=== PATIENT | female | born 1950 | race Caucasian/White ===

== ENCOUNTER 2019-03-05 09:07 | Inpatient (IN) | payer MEDICARE, BC ==
[~2019-03-05] VITALS: Ht 162.6 cm; Wt 64.2 kg
[~2019-03-05 09:07] MED LIST: NO HOME MEDS
[2019-03-05] MEDS ORDERED: diphenhydrAMINE 50 mg/ml inj IV ONE (09:45)
[2019-03-05] MEDS ORDERED: morphine 4 MG/ML inj SYRINge IV ONE (09:45)
[2019-03-05] MEDS ORDERED: normal saline 1000ML IV soln IVB ONE ×2 (09:45→10:50)
[2019-03-05] MEDS ORDERED: proCHLORperazine 10 MG/2 ml inj IV ONE ×2 (09:45→21:30)
[2019-03-05 09:46] LABS: BASOPHILS % (AUTO) 0.2 % (0-1); EOSINOPHILS % (AUTO) 0 % (0-6); HEMATOCRIT 49.4 % (35.0-45.0); HEMOGLOBIN 16.8 g/dl (12.0-16.0); LYMPHOCYTES # (AUTO) 0.9 X10'3 (1.1-4.8); LYMPHOCYTES % (AUTO) 7.4 % (21-51); MEAN CORPUSCULAR HEMOGLOBIN 33.3 PG (27.0-31.0); MEAN CORPUSCULAR HGB CONC 34.1 g/dL (33.0-36.5); MEAN CORPUSCULAR VOLUME 97.7 FL (78-98); MEAN PLATELET VOLUME 8.5 FL (7.4-10.4); MONOCYTES # (AUTO) 0.4 X10'3 (0-0.9); MONOCYTES % (AUTO) 3.3 % (2-12); NEUTROPHILS # (AUTO) 10.2 X10'3 (1.8-7.7); NEUTROPHILS % (AUTO) 89.1 % (42-75); PLATELET COUNT 272 X10'3 (140-440); RED BLOOD COUNT 5.06 X10'6 (4.20-5.60); RED CELL DISTRIBUTION WIDTH 13.1 % (11.5-14.5); WHITE BLOOD COUNT 11.5 X10'3 (4.5-11.0)
[2019-03-05 10:00] LABS: ALANINE AMINOTRANSFERASE 26 U/L (12-78); ALBUMIN 4.2 G/DL (3.4-5.0); ALKALINE PHOSPHATASE 98 IU/L (46-116); AMYLASE 42 U/L (25-115); ANION GAP 17 (8-16); ASPARTATE AMINO TRANSFERASE 19 U/L (10-37); BILIRUBIN,TOTAL 0.6 MG/DL (0.1-1.0); BLOOD UREA NITROGEN 19 MG/DL (7-18); CALCIUM 8.9 MG/DL (8.5-10.1); CHLORIDE 102 MMOL/L (99-107); CREATININE 0.95 MG/DL (0.40-0.90); GLUCOSE 127 MG/DL (70-104); LIPASE 168 U/L (73-393); POTASSIUM 3.6 MMOL/L (3.5-5.1); SODIUM 139 MMOL/L (135-145); TOTAL CARBON DIOXIDE 20.2 MMOL/L (24-32); TOTAL PROTEIN 8.5 G/DL (6.4-8.2); eGFR 58 ML/MIN
--- NOTE | 2019-03-05 10:49 | NUR ---
TO CT SCAN
[2019-03-05 11:20] LABS: CLARITY,URINE SLIGHTLY CLOUDY (Clear); COLOR,URINE YELLOW (Yellow); GLUCOSE, URINE NEGATIVE (Neg); KETONES,URINE 15 mg/dl (Neg); LEUKOCYTE ESTERASE ,URINE NEGATIVE (Neg); NITRITES, URINE POSITIVE (Neg); OCCULT BLOOD,URINE LARGE (Neg); PROTEIN,URINE NEGATIVE (Neg); URINE HCG NEGATIVE (NEG); UROBILINOGEN,URINE 0.2 E.U/dL (0.2-1.0)
[2019-03-05 11:25] LABS: UA COLLECTION TYPE STRAIGHT CATH
--- NOTE | 2019-03-05 11:48 | NUR ---
LYNN ROY INFORMED PATIETN WOKE UP VOMITING, ORDER FOR ZOFRAN
--- NOTE | 2019-03-05 11:49 | NUR ---
PA AWARE OF BP
[2019-03-05] MEDS ORDERED: ondansetron/PF 4mg/2ml inj IV ONE (11:50)
[2019-03-05 11:53] LABS: SQUAMOUS EPITHELIAL CELL,UR FEW /LPF (FEW)
[2019-03-05 11:54] LABS: BACTERIA,URINE 4+ /HPF (Neg)
[2019-03-05 11:58] LABS: WBC,URINE 0-4 /HPF (0-4)
[2019-03-05] MEDS ORDERED: CefTRIAXone/D5W-Rocephin 1gm 50 ML IV ONE (12:05)
--- NOTE | 2019-03-05 13:00 | NUR ---
LYNN ROY AWARE OF REPEAT LACTATE OF 2.5
[2019-03-05] MEDS ORDERED: morphine 2 MG/ML inj. syringe IV PRN ×2 (14:35)
[2019-03-05] MEDS ORDERED: magnesium hydroxide 30ml (MOM) UD suspension PO PRN (14:35)
[2019-03-05] MEDS ORDERED: ondansetron/PF 4mg/2ml inj IV PRN (14:35)
[2019-03-05] MEDS ORDERED: mag hydrox/Alum hydrox/simeth 30ml oral suspension PO PRN (14:35)
--- NOTE | 2019-03-05 15:51 | NUR ---
dr peña at bedside patient to be admited and to or for stone extraction in the am
[2019-03-05] MEDS: normal saline 1000ml 1,000 ML IV SCH (18:43)
--- NOTE | 2019-03-05 19:56 | NUR ---
Attempted to call report to Pat RN in Surgical Unit, nurse currently receiving report from OR. Will call back
[2019-03-05 20:50] VITALS: BP 128/76
[2019-03-05 22:55] VITALS: BP 113/79
[2019-03-05] MEDS: acetaminophen 325mg tablet PO PRN (22:55)
[2019-03-06] VITALS (18 sets, daily range): BP systolic 94–129; BP diastolic 59–98
[2019-03-06] MEDS: normal saline 1000ml 1,000 ML IV SCH ×3 (00:34→10:07)
--- NOTE | 2019-03-06 00:40 | NUR ---
Dr. Livingston notified of Blood cultures from IV start aerobic Gm (-) rods, with Rocephin no change in orders. Addendum: 03/06/19 at 0046 by Sylvie Travis RN Amended: Links added.
[2019-03-06 04:56] LABS: BASOPHILS % (AUTO) 0.2 % (0-1); EOSINOPHILS % (AUTO) 0 % (0-6); HEMATOCRIT 39.6 % (35.0-45.0); HEMOGLOBIN 13.3 g/dl (12.0-16.0); LYMPHOCYTES # (AUTO) 0.3 X10'3 (1.1-4.8); LYMPHOCYTES % (AUTO) 1.4 % (21-51); MEAN CORPUSCULAR HEMOGLOBIN 32.9 PG (27.0-31.0); MEAN CORPUSCULAR HGB CONC 33.7 g/dL (33.0-36.5); MEAN CORPUSCULAR VOLUME 97.7 FL (78-98); MEAN PLATELET VOLUME 8.1 FL (7.4-10.4); MONOCYTES # (AUTO) 0.9 X10'3 (0-0.9); MONOCYTES % (AUTO) 4.3 % (2-12); NEUTROPHILS % (AUTO) 94.1 % (42-75); PLATELET COUNT 156 X10'3 (140-440); RED BLOOD COUNT 4.05 X10'6 (4.20-5.60); RED CELL DISTRIBUTION WIDTH 13.3 % (11.5-14.5); WHITE BLOOD COUNT 20.2 X10'3 (4.5-11.0)
[2019-03-06 05:07] LABS: PARTIAL THROMBOPLASTIN TIME 29 SECONDS (22-32)
[2019-03-06 05:14] LABS: ALBUMIN 2.7 G/DL (3.4-5.0); ANION GAP 12 (8-16); BLOOD UREA NITROGEN 20 MG/DL (7-18); BUN/CREATININE RATIO 14.6 (6.6-38.0); CALCIUM 7.4 MG/DL (8.5-10.1); CHLORIDE 108 MMOL/L (99-107); CREATININE 1.37 MG/DL (0.40-0.90); GLUCOSE 128 MG/DL (70-104); POTASSIUM 3.6 MMOL/L (3.5-5.1); SODIUM 142 MMOL/L (135-145); TOTAL CARBON DIOXIDE 21.7 MMOL/L (24-32); eGFR 38 ML/MIN
--- NOTE | 2019-03-06 06:29 | NUR ---
Patient in room [facility]. I have received report from PAT RN and had the opportunity to ask questions and assume patient care.
--- NOTE | 2019-03-06 07:06 | NUR ---
OR CAME TO GET PATIENT. FAMILY NOTIFIED
--- NOTE | 2019-03-06 07:07 | NUR ---
0700 V/S NOT TAKEN. PT AT SURGERY Addendum: 03/06/19 at 0734 by Sunita Delacruz RN TECH WAS ABLE TO GET V/S, HE LUST LET ME KNOW. WILL CHART
[2019-03-06] MEDS ORDERED: sevoflurane 250ml liquid IH ONE (07:11)
[2019-03-06] MEDS ORDERED: fentaNYL/PF 50MCG/1 ML 2ML syringe ONE ×2 (07:14→08:10)
[2019-03-06 07:39] LABS: LARGE PLATELETS FEW; PLATELET ESTIMATE NORMAL; TOTAL CELLS COUNTED 100
[2019-03-06] MEDS ORDERED: LIDOcaine 2% (20mg/ml) 5ml vial ONE (07:53)
[2019-03-06] MEDS ORDERED: ondansetron/PF 4mg/2ml inj ONE (07:53)
[2019-03-06] MEDS ORDERED: glycopyrrolate 0.2mg/ml inj ONE (07:53)
[2019-03-06] MEDS ORDERED: rocuronium 10mg/ml inj IV ONE (07:53)
[2019-03-06] MEDS ORDERED: neostigmine methylsulfate 1 MG/ML 10ml vial ONE (07:53)
[2019-03-06] MEDS ORDERED: propofol inj 20 ML IV ONE (07:53)
[2019-03-06] MEDS ORDERED: dexamethasone sod phosphate 4mg/ml inj. ONE (07:53)
--- NOTE | 2019-03-06 08:15 | NUR ---
ADMITTED TO PACU FROM OR ACCOMPANIED BY ANESTHESIA. INTIAL PHYSICAL ASSESSMENT DONE AND RECORDED. AWAKE AND RESPONSE ON ARRIVE YO PACU, REPORT RECEIVED FROM ANESTHESIA.
[2019-03-06] MEDS ORDERED: ringers solution, lacted 1,000 ML IV SCH (08:35)
[2019-03-06] MEDS ORDERED: morphine 4 MG/ML inj SYRINge IV PRN ×2 (08:35)
[2019-03-06] MEDS ORDERED: meperidine/PF 25mg/ml syringe IV PRN ×3 (08:35)
[2019-03-06] MEDS ORDERED: ondansetron/PF 4mg/2ml inj IV PRN (08:35)
[2019-03-06] MEDS ORDERED: proCHLORperazine 10 MG/2 ml inj IV PRN (08:35)
--- NOTE | 2019-03-06 09:10 | NUR ---
PACU DISCHARGE CRITERIA MET, REPORT GIVEN TO FLOOR. DENIES PAIN OR DISCOMFORT, TRANSFERRED TO ROOM IN STABLE GOOD CONDITION.
[2019-03-06] MEDS: CefTRIAXone/D5W-Rocephin 1gm 50 ML IV SCH (10:07)
--- NOTE | 2019-03-06 10:13 | NUR ---
Deon gomez. pt at surgery at 0800
--- NOTE | 2019-03-06 17:55 | NUR ---
Problems reprioritized. Patient report given, questions answered & plan of care reviewed with SKYLAR CHENG.
--- NOTE | 2019-03-06 18:30 | NUR ---
Patient in room [facility]. I have received report from AMINA SINCLAIR and had the opportunity to ask questions and assume patient care.
[2019-03-06] MEDS: lactobacillus rhamnosus 10,000 MMU CELLS/CAPSULE PO SCH (19:46)
[2019-03-07 00:27] VITALS: BP 133/78
[2019-03-07] MEDS: normal saline 1000ml 1,000 ML IV SCH ×3 (00:30→20:20)
[2019-03-07 04:46] LABS: BASOPHILS % (AUTO) 0.2 % (0-1); EOSINOPHILS % (AUTO) 0.1 % (0-6); HEMATOCRIT 35.1 % (35.0-45.0); HEMOGLOBIN 11.8 g/dl (12.0-16.0); LYMPHOCYTES # (AUTO) 0.7 X10'3 (1.1-4.8); LYMPHOCYTES % (AUTO) 4.5 % (21-51); MEAN CORPUSCULAR HEMOGLOBIN 33.3 PG (27.0-31.0); MEAN CORPUSCULAR HGB CONC 33.7 g/dL (33.0-36.5); MEAN CORPUSCULAR VOLUME 98.8 FL (78-98); MEAN PLATELET VOLUME 8.5 FL (7.4-10.4); MONOCYTES # (AUTO) 0.7 X10'3 (0-0.9); MONOCYTES % (AUTO) 4.4 % (2-12); NEUTROPHILS # (AUTO) 13.8 X10'3 (1.8-7.7); NEUTROPHILS % (AUTO) 90.8 % (42-75); PLATELET COUNT 127 X10'3 (140-440); RED BLOOD COUNT 3.55 X10'6 (4.20-5.60); RED CELL DISTRIBUTION WIDTH 13.3 % (11.5-14.5); WHITE BLOOD COUNT 15.2 X10'3 (4.5-11.0)
[2019-03-07 05:02] LABS: ALBUMIN 2.3 G/DL (3.4-5.0); ANION GAP 8 (8-16); BLOOD UREA NITROGEN 14 MG/DL (7-18); BUN/CREATININE RATIO 19.4 (6.6-38.0); CALCIUM 7.6 MG/DL (8.5-10.1); CHLORIDE 111 MMOL/L (99-107); CREATININE 0.72 MG/DL (0.40-0.90); GLUCOSE 105 MG/DL (70-104); POTASSIUM 3.9 MMOL/L (3.5-5.1); SODIUM 143 MMOL/L (135-145); eGFR 80 ML/MIN
--- NOTE | 2019-03-07 06:29 | NUR ---
Problems reprioritized. Patient report given, questions answered & plan of care reviewed with NINOSKA SINCLAIR.
--- NOTE | 2019-03-07 06:36 | NUR ---
Patient in room [facility]. I have received report from Nanci Christine RN and had the opportunity to ask questions and assume patient care.
[2019-03-07 07:00] VITALS: BP 122/78
[2019-03-07] MEDS: CefTRIAXone/D5W-Rocephin 1gm 50 ML IV SCH (07:34)
[2019-03-07] MEDS: lactobacillus rhamnosus 10,000 MMU CELLS/CAPSULE PO SCH ×2 (07:34→20:17)
[2019-03-07 11:00] VITALS: BP 146/95
[2019-03-07] MEDS: acetaminophen 325mg tablet PO PRN (17:54)
--- NOTE | 2019-03-07 18:30 | NUR ---
Patient in room [facility]. I have received report from Natalee SINCLAIR and had the opportunity to ask questions and assume patient care. Patient finishing dinner, family at bedside. Will continue to monitor.
--- NOTE | 2019-03-07 18:49 | NUR ---
patient able to ambulate, diet increased to regular tolerating well. Straining urine no stones observed. Seen By DR peña and Dr Varma. Family present. Tylenol given for headache with effect. Report given to Destiney SINCLAIR
[2019-03-07 19:00] VITALS: BP 122/77
[2019-03-08] VITALS: BP 145/95
[2019-03-08 05:23] LABS: BASOPHILS % (AUTO) 0.3 % (0-1); EOSINOPHILS # (AUTO) 0.1 X10'3 (0-0.9); EOSINOPHILS % (AUTO) 1.1 % (0-6); HEMATOCRIT 35.4 % (35.0-45.0); MEAN CORPUSCULAR HEMOGLOBIN 33.7 PG (27.0-31.0); MEAN PLATELET VOLUME 9.1 FL (7.4-10.4); MONOCYTES # (AUTO) 0.6 X10'3 (0-0.9); MONOCYTES % (AUTO) 6.2 % (2-12); NEUTROPHILS # (AUTO) 7.7 X10'3 (1.8-7.7); NEUTROPHILS % (AUTO) 81.4 % (42-75); PLATELET COUNT 150 X10'3 (140-440); RED BLOOD COUNT 3.57 X10'6 (4.20-5.60); RED CELL DISTRIBUTION WIDTH 13.1 % (11.5-14.5); WHITE BLOOD COUNT 9.4 X10'3 (4.5-11.0)
[2019-03-08 06:01] LABS: ALBUMIN 2.3 G/DL (3.4-5.0); ANION GAP 7 (8-16); BLOOD UREA NITROGEN 13 MG/DL (7-18); BUN/CREATININE RATIO 17.3 (6.6-38.0); CALCIUM 7.8 MG/DL (8.5-10.1); CHLORIDE 110 MMOL/L (99-107); CREATININE 0.75 MG/DL (0.40-0.90); GLUCOSE 87 MG/DL (70-104); POTASSIUM 3.3 MMOL/L (3.5-5.1); SODIUM 144 MMOL/L (135-145); TOTAL CARBON DIOXIDE 26.6 MMOL/L (24-32); eGFR 77 ML/MIN
--- NOTE | 2019-03-08 06:31 | NUR ---
Problems reprioritized. Patient report given, questions answered & plan of care reviewed with [place] RN. Patient resting eyes closed respirations even.
[2019-03-08 07:30] VITALS: BP 133/77
[2019-03-08] MEDS: lactobacillus rhamnosus 10,000 MMU CELLS/CAPSULE PO SCH (08:25)
[2019-03-08] MEDS: CefTRIAXone/D5W-Rocephin 1gm 50 ML IV SCH (08:25)
[2019-03-08] MEDS ORDERED: potassium Cl 20 mEq SR tablet PO PRN ×2 (09:10)
[2019-03-08] MEDS ORDERED: potassium CL 10mEq/100ml bag 100 ML IV PRN (09:10)
[2019-03-08] MEDS ORDERED: CIPR-230 PO (10:16)
[2019-03-08] MEDS ORDERED: potassium Cl 20 mEq SR tablet PO STA (10:34)
--- NOTE | 2019-03-08 10:57 | NUR ---
Patient discharged home with . All belongings taken from room. IV and monitoring analyst removed. Discharge instructions given and reviewed with patient, phone number given for follow up with Dr. Reynoso. requested x1 more dose of 20mEq k-dur to be given prior to DC.
== END 2019-03-08 11:04 | disposition home or self-care (01) | DRG 853 ==
LOC: ER 09:07 → SUR 3N 20:50 → CMPBEDREQ 20:56
PROVIDERS: ADMIT Family Medicine; ATTEND Family Medicine
PROC: 0T778DZ Dilation of Left Ureter with Intraluminal Device, Via Natural or Artificial Opening Endoscopic (ICD-10-PCS; 2019-03-06)
PROC: BT1F1ZZ Fluoroscopy of Left Kidney, Ureter and Bladder using Low Osmolar Contrast (ICD-10-PCS; 2019-03-06)
PROC: 0TC78ZZ Extirpation of Matter from Left Ureter, Via Natural or Artificial Opening Endoscopic (ICD-10-PCS; principal; 2019-03-06 07:11)
DX: A41.51 Sepsis due to Escherichia coli [E. coli] (principal); N17.0 Acute kidney failure with tubular necrosis; N13.6 Pyonephrosis; B96.20 Unspecified Escherichia coli [E. coli] as the cause of diseases classified elsewhere; Z88.2 Allergy status to sulfonamides; Z88.8 Allergy status to other drugs, medicaments and biological substances; Z90.710 Acquired absence of both cervix and uterus; Z79.899 Other long term (current) drug therapy
CPT/HCPCS: 36415; 74176; 76000; 80048; 80053; 81001; 81025; 82150; 83605; 83690; 84145; 85025; 85610; 85730; 87040; 87077; 87081; 87088; 87186; 88300; 93005; 96365; 96375; 96376; 99285; A4402; A4618; C1758; C1769; C2617; G0378; J0696; J0780; J1100; J1200; J2001; J2175; J2270; J2405; J2704; J2710; J3010; J3490; J7030; J7120